=== PATIENT | male | born 1995 | race Caucasian/White ===

== ENCOUNTER 2025-10-30 18:39 | Emergency (ER) | payer OTHER, SELFPAY ==
--- OUTSIDE RECORDS SUMMARY | 2010-08-14 19:00 | XMS_ITS | Continuity of Care Document ---
Author Organization [facility] Address [address] [place] [address] Phone Care Team Providers Care Meat Hostess Name Role Phone Kwesi Mcmullen Unavailable Unavailable Procedures Procedure Date OFFICE/OUTPATIENT VISIT, [facility] MENINGOCOCCAL VACCINE, IM TDAP VACCINE >7 IM Advance Directives Directive Yes / No Effective Date File Name No Information Encounters Encounter Description Practice Location Reason(s) For Visit Diagnoses Date Provider Providers Copied on Encounter OFFICE/OUTPAT IENT VISIT, EST [facility], [address], [place], [id number], [place] tel:[phone] [place] [facility] No Information Sowmya Collazo. [address], [place], [id number], [place]. tel:[phone] Family History Family Member Type Diagnosis Age At Onset No Information Payers Payer name Insurance type Covered democrat ID Authoriza tibriana(s) [facility] Medicaid [id number] Social History Type Description Quantity Date Captured Comments Sex Male Smoking Status No Information Chief Complaint And Reason For Visit No Information Reason For Referral Reason For Referral No Information History Of Present Illness Encounter Date Complaint History Of Prese nt Illness No Information Functional Status Date Functional Assessmen t No Information Instructions Date Instruction Additional Infor mation No Information Assessments Type Assessment Date No Information Patient Care Teams Name Effective Dates (start - stop) Status Members No Information
[2025-10-30 18:46] VITALS: BP 143/86; PULSE 86; TEMP 36.6; O2SAT 97; BMI 21.5
--- NOTE | 2025-10-30 18:55 | XR_ITS ---
The [address] [address] Patient Name: LADONNA RAINES MRN: [id number] date: 1995 Sex: M Assigned Patient Location: ER Current Patient Location: ED.MAIN Accession/Order Number: [id number] Exam Date: 10/30/2025 19:00 Report Date: 10/30/2025 19:55 At the request of: DOMINIC DYKES Procedure: XR forearm LT 2V LEFT FOREARM - 2 views CLINICAL HISTORY: Dogbite COMPARISON: None FINDINGS: No fracture-dislocation identified. Mild soft tissue swelling identified. No radiopaque foreign body. No soft tissue gas. XR/XR forearm LT 2V IMPRESSION: NEGATIVE ACUTE FRACTURES OR DISLOCATIONS. SOFT TISSUES SWELLING WITHOUT RADIOPAQUE FOREIGN BODY. Impression dictated by: Gareth Ferrari M.D. 10/30/2025 7:55 PM Dictation Location: [place] [address] Electronically authenticated by: [id number] Y Date: 10/30/2025 19:55
--- NOTE | 2025-10-30 18:56 | ED_ITS ---
HPI - Animal Bite General Chief Complaint: Animal Bite Stated Complaint: BIT BY A DOG/ LOSING FEELING IN LEFT FOREARM Time Seen by Provider: 10/30/25 18:53 Source: patient Mode of arrival: walk-in History of Present Illness HPI narrative: 30 year old male presents to the ED for a dog bite to his left forearm. States he was walking through his living room. He did not see the dog on the floor. He accidentally stepped on the dog's tail. The dog the dog turned and bit his arm. He has two abrasions to the left lateral forearm and one puncture wound to the left posteromedial forearm. No active bleeding. Reports tingling to his left hand. His last tetanus update was <5 years ago. Related Data Home Medications ?Medication ?Instructions ?Recorded ?Confirmed aripiprazole 400 mg suspension, mg IM 10/30/25 extended rel.intramuscular syringe (Renée Hoyos) Previous Rx's ?Medication ?Instructions ?Recorded amoxicillin 875 mg-potassium 1 tab PO BID #10 tabs 01/23 clavulanate 125 mg tablet Allergies Allergy/AdvReac Type Severity Reaction Status Date / Time risperidone (From Risperdal) Allergy Seizure Verified 10/30/25 18:46 Review of Systems ROS Constitutional Denies: fever or chills Cardiovascular Denies: chest pain Respiratory Denies: shortness of breath Musculoskeletal Reports: extremity pain Integumentary/Breast Reports: skin pain, skin tenderness and new lesion Neurological Reports: numbness in extremities; Denies: weakness in extremities PFSH PFSH Social History Little interest or pleasure in doing things: not at all Feeling down, depressed, or hopeless: not at all Exam Constitutional Vital Signs, click to edit/add: Last Vital Signs Temp 97.9 F 10/30/25 18:46 Pulse 86 10/30/25 18:46 Resp 16 10/30/25 18:46 BP 143/86 H 10/30/25 18:46 Pulse Ox 97 10/30/25 18:46 O2 Del Method Room Air 10/30/25 18:50 Common normals: no apparent distress and oriented x3 General appearance: cooperative [facility] Common normals: moist oral mucous membranes Eye Common normals: conjunctivae normal and no scleral icterus Neck & C-Spine Common normals: supple Chest Chest: symmetrical chest wall rise Respiratory Common normals: normal respiratory effort Effort & inspection: able to speak in complete sentences and symmetric chest movement Cardio Common normals: regular rate Peripheral pulses: radial pulses present Extremity Other: Two abrasions noted to the left lateral forearm and one puncture wound to the left posteromedial forearm. No active bleeding. Minimal swelling surrounding the puncture wound. Pt has full ROM to his left wrist and hand. Distal sensation intact. Neuro Common normals: oriented x3, CN's II-XII intact bilaterally, moves all extremities and no focal motor deficits Sensorium/orientation: awake and alert Speech: speech normal Gait (neuro): normal gait Course Vital Signs Vital signs: Vital Signs Temperature 97.9 F 10/30/25 18:46 Pulse Rate 86 10/30/25 18:46 Respiratory Rate 16 10/30/25 18:46 Blood Pressure 143/86 H 10/30/25 18:46 Pulse Oximetry 97 10/30/25 18:46 Oxygen Delivery Method Room Air 10/30/25 18:46 Temperature 97.9 F 10/30/25 18:46 Pulse Rate 86 10/30/25 18:46 Respiratory Rate 16 10/30/25 18:46 Blood Pressure 143/86 H 10/30/25 18:46 Pulse Oximetry 97 10/30/25 18:46 Oxygen Delivery Method Room Air 10/30/25 18:50 MDM - Animal Bite MDM Narrative Medical decision making narrative: X-ray was negative for acute findings. Findings were discussed. His wound was cleansed. Antibiotic ointment and a dressing were applied. A prescription was provided for Augmentin. Follow up with pcp for a recheck, further evaluation and treatment. Return to the ED for worsening symptoms. Differential Diagnosis Differential diagnosis: Likely dog bite Medical Records Attestation: I reviewed the patient's medical records. Imaging Data XR: Attestation: I have reviewed the pertinent imaging results. Radiologist's impression: ITS Impressions Forearm X-Ray 10/30/25 18:55 IMPRESSION: NEGATIVE ACUTE FRACTURES OR DISLOCATIONS. SOFT TISSUES SWELLING WITHOUT RADIOPAQUE FOREIGN BODY. Impression dictated by: Gareth Ferrari M.D. 10/30/2025 7:55 PM Dictation Location: [place] [address] Electronically authenticated by: [id number] Y Date: 10/30/2025 19:55 Discharge Plan Discharge Chief Complaint: Animal Bite Clinical Impression: Dog bite Patient Disposition: Home, Self-Care Time of Disposition Decision: 19:53 Condition: Good Mode of Transportation: Private Vehicle Prescriptions / Home Meds: New amoxicillin-pot clavulanate 875-125 mg tablet 1 tab PO BID Qty: 10 0RF No Action Abilify Maintena 400 mg suspension,extended rel syring IM Print Language: Turkish Instructions: Animal Bite (ED) Additional Instructions: Take the antibiotics as directed to completion. Watch for signs of infection: redness, purulent drainage, swelling, increased warmth. Return to the ED for worsening symptoms. Referrals: ZEN DE LA O [Primary Care Provider, Unknown] - 1 week Discharge Date/Time: 10/30/25 19:57
[2025-10-30] MEDS: AMOXICILLIN/POT CLAV 875-125 MG TABLET 1 TAB PO (19:17)
[2025-10-30] MEDS: BACITRACIN 0.9 GM PACKET 1 PACKET TOPICAL (19:45)
--- OUTSIDE RECORDS SUMMARY | 2025-10-30 19:55 | XMS_ITS | Clinical Summary ---
Author Organization [facility] tem Address [id number] [place] [address] Care Team Providers Care Laborer Concrete Paving Name Role Phone No Pcp, No Pcp Primary Care Provider Unavailabl e Allergies Active AllergyReactionsCriticalityNoted DateCommentsRisperidoneOther (See Comments)High09/16/2017 Seizures Medications * This document contains information received from the source organization and may not represent a complete record from that organization. MedicationSigDispense QuantityRefillsLast FilledStart DateEnd DateStatus ARIPiprazole, 2 month, 960 mg/3.2 mL suspension,extended rel syring Inject 960 mg into the appropriate muscle every 60 (sixty) days.Active traZODone (DESYREL) 50 mg tablet Take 1 tablet (50 mg total) by mouth nightly.Active dibucaine (NUPERCAINAL) 1 % ointment Apply 1 Application topically 3 (three) times a day. 30 g 5Active Active Problems ProblemNoted DateDiagnosed DateSeizure-like aoudotqy27/15/2262Kvtgbljz32/14/2024 Encounters DateTypeDepartmentCare NsatWhtrtwvowqu79/10/2025Results Follow-Up [facility] [address] [place] [address] Azul Anguiano RN SARS/FLU A+B/RSV by NAAT/Molecular (M4RT Collection Tube)08/07/2025 5:41 PM EDT - 08/07/2025 7:22 PM EDTEmergency [facility] [address] [place] [address] Garo Walker MD Rectal fissure (Primary Dx) Discharge Disposition: Homefrom Last 3 Months Immunizations ImmunizationAdministration DatesNext EfsLadb9605/27/2025() Social History Tobacco UseTypesPacks/DayYears UsedDateSmoking Tobacco: Every DayCigarsSmokeless Tobacco: NeverAlcohol UseStandard Drinks/WeekCommentsYes0 (1 standard drink = 0.6 oz pure alcohol)[facility] UtilitiesAnswerDate RecordedIn the past 12 months has the [employer], gas, oil, or water [employer] threatened to shut off services in your home?No4AUDIT-CAnswerDate RecordedQ1: How often do you have a drink containing alcohol?Monthly or less09/11/2024Q2: How many drinks containing alcohol do you have on a typical day when you are drinking?Patient does not drink09/11/2024Q3: How often do you have six or more drinks on one occasion?Never09/11/2024HQ-2AnswerDate RecordedTotal Qvjxu632RAPARE - TransportationAnswerDate RecordedIn the past 12 months, has lack of transportation kept you from medical appointments or from getting medications?No 09/11/2024In the past 12 months, has lack of transportation kept you from meetings, work, or from getting things needed for daily living?No09/11/2024 Housing InstabilityAnswerDate RecordedAre you worried or concerned that in the next two months you may not have stable housing that you own, rent or stay in as a part of a household?No4ChildcareAnswerDate RecordedChildcareUnknown 05/08/2019EmploymentAnswerDate MgzkbtpnZfbtlalkmwSlivpbq37/10/2019Hunger ScreeningAnswerDate RecordedWithin the past 12 months we worried whether our food would run out before we got money to buy more.Never True08/07/2025Within the past 12 months the food we bought just didn't last and we didn't have money to get more.Never True08/07/2025Purpose - LifeAnswerDate RecordedPurpose and direction in zpzdDtedthx39/10/2021ex and Gender InformationValueDate Recorded Sex Assigned at BirthNot on fileLegal MchOwzr8107/02/2015 12:06 PM EDTGender IdentityNot on fileSexual OrientationNot on file Last Filed Vital Signs Vital SignReadingTime TakenCommentsBlood Dldjvfvh201/9308/07/2025 7:15 PM EDT Tdjog346608/07/2025 6:38 PM MNSXmbdgrhekcy13.2 ??C (97.1 ??F)08/07/2025 5:37 PM EDTRespiratory Fniv822108/07/2025 6:38 PM EDTOxygen Vmkspfzbrk144%08/07/2025 7:15 PM EDTInhaled Oxygen Concentration--Kqymfp49.6 kg (160 lb)08/07/2025 5:37 PM EDT Tqtsac064.8 cm (5' 10 )08/07/2025 5:37 PM EDTBody Mass Index22.9608/07/2025 5:37 PM EDT Plan of Treatment Health MaintenanceDue DateLast DoneCommentsTobacco Kfiajnjrqc1997Influenza Dtjayvc3407/30/2025Depression Dbwzauyel80/dult BMI Screening /07/2025Tobacco Lvmwzxjos27DTaP,Tdap and Td Vaccines (8 - Td or Tdap)/01/2021, 07/13/2018, 08/15/2010, Additional history exists Goals GoalPatient Goal TypeAssociated ProblemsRecent ProgressPatient-Stated?Author home Susan Devlin, MARA Note: Evaluation of progress towards goal: father / mother stated patient plans to return home at discharge with father and sister and sister's children. Medical Devices Not on file Procedures Procedure NamePriorityDate/TimeAssociated DiagnosisCommentsCOMPREHENSIVE METABOLIC YLAPGYGZZ45/09/2025 6:44 PM EDT EXTRA TUBES BLUE SXPUkukwxg31/09/2025 6:43 PM EDT EXTRA EATERRhdcpxz39/09/2025 6:43 PM EDT CBC WITH AUTO UNPECORAMVWRVINI04/09/2025 6:43 PM EDT SARS/FLU A+B/RSV BY NAAT/MOLECULAR (M4RT COLLECTION TUBE)STAT08/07/2025 6:15 PM EDT from Last 3 Months Results * Comprehensive metabolic panel (08/07/2025 6:44 PM EDT)ComponentValueRef Range Test MethodAnalysis TimePerformed AtPathologist EyujhpaiyRHFORZ225898 - 146 mmol/L08/07/2025 7:[address] VINCENT MEDICAL CENTERPOTASSIUM3.83.5 - 5.0 mmol/L08/07/2025 7:16 PM EDST[facility] AN[facility]ONY'S HOSPITALCHLORIDE [address]48 - 109 mmol/L08/07/2025 7:16 PM [facility] [place] KCHBTPM1220 - 32 mmol/L08/07/2025 7:[address] VINCENT MEDICAL CENTERANION GAP75 - 15 mmol/L08/07/2025 7:16 PM EDST. ANTHONY'S HOSPITALBLOOD UREA BJSICXVJ113 - 23 mg/dL08/07/2025 7:16 PM EDT [facility] HOSPITALCREATININE0.930.70 - 1.20 mg/dL08/07/2025 7:16 PM [facility]ABILITATIONComment:METHOD TRACEABLE TO IDMS YRWVWPEPORRASBE2949 - 99 mg/dL08/07/2025 7:16 PM EDST. ANTHONY'S HOSPITALCALCIUM8.88.5 - 10.5 mg/dL08/07/2025 7:16 PM EDST. ANTHONY'S HOSPITALTOTAL PROTEIN7.86.0 - 8.0 g/dL08/07/2025 7:16 PM EDST. ANTHONY'S HOSPITALALBUMIN3.83.2 - 5.3 g/dL08/07/2025 7:16 PM EDT [facility] HOSPITALALKALINE COVHPXDUWCY5483 - 130 U/L 08/07/2025 7:16 PM EDST. ANTHONY'S HOSPITALAST17<=41 U/L 08/07/2025 7:16 PM [facility] REHABIL[facility]ATIONALT13<=40 U/L 08/07/2025 7:16 PM [facility] FOR REHABILITATIONBILIRUBIN,TOTAL0.70.3 - 1.2 mg/dL08/07/2025 7:16 PM [facility]ATIONEGFR Non- Race Dependent>90>=60 ml/min/1.73sq.m008/07/2025 7:16 PM [facility]HABILITATIONComment: eGFR not reported due to non-numeric value for Creatinine. Reported eGFR is based on the CKD-EPI 2020 equation that does not use a race coefficient. Specimen (Source)Anatomical Location / LateralityCollection Method / Volume Collection TimeReceived TimeBloodVenous blood / UnknownVenipuncture / Unknown 08/07/2025 6:44 PM EDT08/07/2025 6:47 PM EDT Narrative Authorizing ProviderResult TypeResult StatusRatiffany UBRKSMILFORD REGIONAL MEDICAL CENTERLAB BLOOD ORDERABLESFinal ResultPerforming OrganizationAddressCity/State/ZIP CodePhone Number [address] [place] [address], [place] * Light Blue Top (08/07/2025 6:43 PM EDT)ComponentValueRef RangeTest Method Analysis TimePerformed AtPathologist SignatureExtra TubeAuto Resulted 08/07/2025 8:01 PM [facility] CAN[facility] CENTERpecimen (Source) Anatomical Location / LateralityCollection Method / VolumeCollection Time Received TimeBloodVenous blood / Psimmxr4408/07/2025 6:43 PM EDT08/07/2025 6:48 PM EDT Narrative Authorizing ProviderResult TypeResult StatusGaro Walker MDLAB BLOOD ORDERABLES Final ResultPerforming OrganizationAddressCity/State/ZIP CodePhone Number [address] [place] [address], [place] * (ABNORMAL) CBC auto differential (08/07/2025 6:43 PM EDT)ComponentValueRef RangeTest MethodAnalysis TimePerformed AtPathologist PfxadnjgbIGO71.84 - 11 x10E9/L08/07/2025 6:[address] VINCENT MEDICAL CENTERRBC Count5.26 4.1 - 5.7 X10E12/L08/07/2025 6:[address] [facility]ENTER Nuxkimmfib80.813 - 17 g/dL08/07/2025 6:[address] VINCENT MEDICAL CENTERHematocrit46.639 - 50 %08/07/2025 6:[address] VINCENT MEDICAL CENTERMCV8980 - 100 fL08/07/2025 6:[address] VINCENT MEDICAL CENTERMCH30.027 - 34 pg08/07/2025 6:[address] VINCENT MEDICAL CENTERMCHC33.932 - 36 g/dL08/07/2025 6:[address] VINCENT MEDICAL CENTERRDW13.311.5 - 15 %08/07/2025 6:[address] VINCENT MEDICAL CENTERPlatelet Usufg222422 - 450 X10E9/L08/07/2025 6:54 PM EDT [facility] HOSPITALMPV7.17 - 12 fL08/07/2025 6:54 PM EDT [facility] HOSPITALNeutrophils %68.5%08/07/2025 6:54 PM EDT [facility]FF[facility] HOSPITALLymphocytes %15.8%08/07/2025 6:54 PM EDT [facility] HOSPITALMonocytes %10.8%08/07/2025 6:54 PM EDT [facility] HOSPITALEosinophils %4.2%08/07/2025 6:54 PM EDT [facility] HOSPITALBasophils %0.7%08/07/2025 6:54 PM EDT [facility] HOSPITALNeutrophils Absolute (A)7.4(H)1.5 - 6.6 10*3/uL08/07/2025 6:[address] VINCENT MEDICAL CENTERLymphocytes Absolute1.71.0 - 3.5 10*3/uL08/07/2025 6:54 PM EDTPKEENAN PRIVATE HOSPITAL HOSPITALMonocytes Absolute1.2(H)0.0 - 0.9 10*3/uL08/07/2025 6:54 PM EDT [facility] HOSPITALEosinophils Absolute0.5(H)0.0 - 0.4 10*3/uL 08/07/2025 6:[address] VINCENT MEDICAL CENTERBasophils Absolute0.1 0.0 - 0.2 10*3/uL08/07/2025 6:54 [address] EDST[facility] Differential TypeAUTOMATED CNWAVMZEHGZO75/09/2025 6:54 PM [facility]ENTERpecimen (Source)Anatomical Location / LateralityCollection Method / VolumeCollection TimeReceived TimeBloodVenous blood / Unknown Venipuncture / Kpoifbp4208/07/2025 6:43 PM EDT08/07/2025 6:47 PM EDT Narrative Authorizing ProviderResult TypeResult StatusRachel D Olivia HAT COPYIST-CNPLAB BLOOD ORDERABLESFinal ResultPerforming OrganizationAddressCity/State/ZIP CodePhone Number [facility] [address] [place] [address], * SARS/FLU A+B/RSV by NAAT/Molecular (M4RT Collection Tube) (08/07/2025 6:15 PM EDT)ComponentValueRef RangeTest MethodAnalysis TimePerformed AtPathologist SignatureFLU A CTQWszcbxqaDbajhmgm17/09/2025 7:[address] VINCENT MEDICAL CENTERFLU B EDYEpyuuishLawyivln83/09/2025 7:[address] VINCENT MEDICAL CENTERRSV BY VCXTlejfclqOuvgevvc36/09/2025 7:29 PM EDT [facility]ENTERARS COV 2 BY PCRNot DetectedNot Detected 08/07/2025 7:29 PM [facility] CENTERpecimen (Source) Anatomical Location / LateralityCollection Method / VolumeCollection Time Received TimeSwabNasopharyngeal structure / UnknownVenipuncture / Unknown 08/07/2025 6:15 PM EDT08/07/2025 6:48 PM EDT Narrative [facility] - 08/07/2025 7:29 PM EDT The Xpert Xpress SARS-CoV-2/Flu/RSV Plus test is a rapid, multiplexed real-time RT-PCR test intended for the simultaneous qualitative detection and differentiation of SARS-CoV-2, influenza A, influenza B and respiratory syncytial virus (RSV) viral RNA from individuals suspected of respiratory viral infection consistent with COVID-19 by Their healthcare provider. This test has not been validated in asymptomatic patients. The Xpert Xpress SARS-CoV-2 test is intended for use by qualified and trained operators who are performing tests using either [employer] or [employer] systems and is limited to laboratories that meet the CLIA requirements to perform high and moderate complexity tests. The Xpert Xpress SARS-CoV-2/Flu/RSV Plus is only for use under the Food and Drug Administration's Emergency Use Authorization. Results are for the simultaneous detection and differentiation of SARS-CoV-2, influenza A, influenza B and RSV nucleic acids in clinical specimens. SARS-CoV-2, influenza A, influenza B and RSV RNA identified by this test are generally detectable in upper respiratory samples during the acute phase of infection. Positive results are Indicative of the presence of the identified virus, but do not rule out bacterial infection or co-infection with other pathogens not detected by this test. Clinical correlation with patient history and other diagnostic information is necessary to determine patient infection status. The agent detected may not be the definite cause of disease. Negative results do not preclude SARS-CoV-2, influenza A, influenza B and RSV infection and should not be used as the sole basis for treatment or other patient management decisions. Negative results must be combined with clinical observations, patient history and epidemiological information. An Invalid result may occur with specimen-associated inhibition unable to be resolved with specimen repeat. Fact Sheet for Healthcare Providers: ?? https://www.fda.gov/media/526232/download ? Fact Sheet for Patients: ?? https://www.fda.gov/media/644011/download ?? Authorizing ProviderResult TypeResult StatusRachedonell Baker APRN-[facility] MICROBIOLOGY - GENERAL ORDERABLESFinal ResultPerforming OrganizationAddress City/State/ZIP CodePhone Number [facility] [address] [place] [address], [place] from Last 3 Months Insurance Advance Directives * Full Code (Latest Code Status on File) Date ActivatedDate CskzuortxkdTakuxsff80/14/2024 5:37 PM10 5:57 PM Care Teams Team MemberRelationshipSpecialtyStart DateEnd Date No [place], [place] [address] PCP - GeneralOr[facility] Systemly Medicine05/27/25
== END 2025-10-30 19:57 | disposition home or self-care (01) ==
PROVIDERS: Emergency Provider Internal Medicine; PCP Nurse Practitioner
DX: S51.832A Puncture wound without foreign body of left forearm, initial encounter (principal); S50.812A Abrasion of left forearm, initial encounter; W54.0XXA Bitten by dog, initial encounter
CPT/HCPCS: 73090; 99283